=== PATIENT | male | born 1975 | race Caucasian/White ===

== ENCOUNTER 2024-05-28 10:12 | Day surgery (SDC) | payer BC ==
[2024-05-28] MEDS: Lactated Ringers 1,000 ML IV SCH (10:36)
[2024-05-28] MEDS ORDERED: Lidocaine 2% 5 ML SDV ONE (10:45)
[2024-05-28] MEDS ORDERED: Propofol 200 MG/20 ML SDV ONE ×2 (10:45→11:56)
[2024-05-28] MEDS ORDERED: fentaNYL 100 MCG/2 ML SDV ONE (11:28)
== END 2024-05-28 13:15 | disposition home or self-care (01) ==
LOC: MW.SDS 10:12
PROVIDERS: ATTEND Surgery
DX: Z12.11 Encounter for screening for malignant neoplasm of colon (principal); D12.3 Benign neoplasm of transverse colon; D12.5 Benign neoplasm of sigmoid colon; E66.9 Obesity, unspecified; Z80.0 Family history of malignant neoplasm of digestive organs; Z88.8 Allergy status to other drugs, medicaments and biological substances; Z88.5 Allergy status to narcotic agent; Z79.899 Other long term (current) drug therapy; Z87.891 Personal history of nicotine dependence; Z68.37 Body mass index [BMI] 37.0-37.9, adult
CPT/HCPCS: 45380; J2704; J3010; J7120; J3490